=== PATIENT | male | born 1945 | race Caucasian/White ===

== ENCOUNTER 2019-04-01 08:22 | Outpatient (CLI) | payer MEDICARE, BC ==
--- NOTE | 2019-04-01 10:33 | ULT ---
THYROID ULTRASOUND: History Thyroid nodule. FINDINGS: Real-time imaging of the right and left lobes of the thyroid were performed. The right lobe measures 1.5 x 1.6 x 3.7 cm and the left lobe 1.3 x .3 x 2.9 cm. No thyroid nodules are identified. In [place] tion, imaging was performed in the region along the right side of the angle of the mandible. The pat ient reported some type of fatty mass or fatty salivary gland. No abnormality is seen in this region . IMPRESSION: Unremarkable thyroid ultrasound. POS: [facility]
== END 2019-04-01 08:23 | disposition home or self-care (01) ==
LOC: MADULT 08:22
PROVIDERS: ATTEND Otolaryngology Plastic Surgery within the Head & Neck
DX: E04.1 Nontoxic single thyroid nodule (principal)
CPT/HCPCS: 76536

== ENCOUNTER 2025-07-10 08:48 | Outpatient (CLI) | payer MEDICARE, BC, OTHER ==
[2025-07-10 09:22] LABS: ALT (SGPT) 27 U/L (Less than 45); AST (SGOT) 39 U/L (11-34); Albumin 4.0 g/dL (3.1-4.5); Alkaline Phosphatase 71 U/L (40-110); Bilirubin, Direct 0.3 mg/dL (0.1-0.3); Bilirubin, Total 0.9 mg/dL (0.3-1.2); Cardiac Risk 5.2 (Less than 4.5); Cholesterol 246 mg/dl (< 200 Desired); HDL Cholesterol 47 mg/dL (>60 Neg Risk); LDL Cholesterol, Calculated 174 mg/dL; Triglycerides 127 mg/dL (Less than 150)
== END 2025-07-10 08:49 | disposition home or self-care (01) ==
LOC: MADLAB 08:48
PROVIDERS: ATTEND Family Medicine
DX: E78.5 Hyperlipidemia, unspecified (principal)
CPT/HCPCS: 36415; 80061; 80076